=== PATIENT | male | born 1945 | race Caucasian/White ===

== ENCOUNTER 2018-03-29 08:30 | Inpatient (IN) | payer OTHER ==
[~2018-03-29] VITALS: Ht 162.6 cm; Wt 73.5 kg
[2018-03-29] MEDS ORDERED: PROTONIX40 M1 PO (11:43)
[2018-03-29] MEDS ORDERED: JARDIANCE10 MG PO (11:44)
[2018-03-29] MEDS ORDERED: CLOPIDOGREL BIS75 MG PO (11:45)
[2018-03-29] MEDS ORDERED: ENALAPRIL MALEA10 MG PO (11:45)
[2018-03-29] MEDS ORDERED: GABAPENTIN100 MG PO (11:45)
[2018-03-29] MEDS ORDERED: OSTERA TABLET1 EACH PO (11:46)
[2018-03-29] MEDS ORDERED: EZETIMIBE10 MG PO (11:46)
[2018-03-29] MEDS ORDERED: CRESTOR20 MG PO (11:46)
[2018-04-04] MEDS ORDERED: HYOSCYAMINE0.125 M1 SL (10:26)
[2018-04-04] MEDS ORDERED: ULTRACET PO (10:27)
[2018-04-04] MEDS ORDERED: GAS RELIEF125 MG PO (10:36)
== END 2018-04-04 12:48 | disposition home or self-care (01) | DRG 330 ==
LOC: SURH 04-01 08:30 → O/R 04-01 10:42 → SURH 04-01 14:00
PROVIDERS: Surgery
PROC: 07TC4ZZ Resection of Pelvis Lymphatic, Percutaneous Endoscopic Approach (ICD-10-PCS; 2018-04-01)
PROC: 0DQM4ZZ Repair Descending Colon, Percutaneous Endoscopic Approach (ICD-10-PCS; 2018-04-01)
PROC: 0DJD8ZZ Inspection of Lower Intestinal Tract, Via Natural or Artificial Opening Endoscopic (ICD-10-PCS; 2018-04-01)
PROC: 0DTN4ZZ Resection of Sigmoid Colon, Percutaneous Endoscopic Approach (ICD-10-PCS; principal; 2018-04-01 14:00)
DX: C18.7 Malignant neoplasm of sigmoid colon (principal); K91.71 Accidental puncture and laceration of a digestive system organ or structure during a digestive system procedure; R59.0 Localized enlarged lymph nodes; I10 Essential (primary) hypertension; E11.9 Type 2 diabetes mellitus without complications; G47.33 Obstructive sleep apnea (adult) (pediatric)